=== PATIENT | female | born 2000 | race African-American/Black ===

== ENCOUNTER 2022-10-24 19:22 | Emergency (ER) | payer OTHER, SELFPAY ==
[2022-10-24 19:24] VITALS: BP 141/83; PULSE 86; RESP 16; TEMP 38.2; O2SAT 100
== END 2022-10-24 19:53 | disposition left against medical advice (07) ==
LOC: EXPBETH 19:27
PROVIDERS: Emergency Provider Nurse Practitioner Family; PCP Nurse Practitioner Family
DX: R53.83 Other fatigue (principal); R06.02 Shortness of breath; R52 Pain, unspecified; R05.9 Cough, unspecified
CPT/HCPCS: 87426; 87804; 99199; C9803